=== PATIENT | female | born 1995 ===

== ENCOUNTER 2020-01-03 17:46 | Emergency (ER) | payer MEDICAID, SELFPAY ==
[2020-01-03] MEDS ORDERED: Metoclopramide HCl 10 MG/2 ML VIAL ONE (19:18)
[2020-01-03] MEDS ORDERED: diphenhydrAMINE 50 MG/ML VIAL ONE (19:18)
[2020-01-03] MEDS ORDERED: Ketorolac Tromethamine 30 MG/ML VIAL ONE (19:50)
== END 2020-01-03 20:47 | disposition home or self-care (01) ==
LOC: ERS 17:46
DX: R51 Headache (principal)
CPT/HCPCS: 96361; 96365; 96375; J1200; J1885; J2765